=== PATIENT | female | born 1945 | race Caucasian/White ===

== ENCOUNTER 2019-02-27 02:16 | Outpatient (CLI) | payer OTHER, SELFPAY ==
--- NOTE | 2019-02-27 | PFT_ITS ---
PULMONARY FUNCTION TEST REPORT Patient - Luh Vargas DATE OF SERVICE February 27, 2019 REQUESTING PROVIDER Digna Montoya M.D. INTERPRETATION OF STUDY Spirometry shows mild obstructive airways disease with no bronchodilator response. IMPRESSION Mild obstructive airways disease with no significant bronchodilator response. Clinical correlation recommended. Penny Mullins M.D. JOYCE/ T- 03/06/2019 Methacholine challenge testing Good patient effort after baseline spirometry showing mild obstructive airways disease. Methacholine challenge testing was carried out up to a methacholine concentration of 0.5 mg/ml, at which point the patient had a 27% drop in FEV1. IMPRESSION Strongly positive Methacholine challenge test. Clinical correlation recommended. Penny Mullins M.D. Corrina T 03/06/2019
[2019-02-27] MEDS: Methacholine 100 MG VIAL IH (11:45)
[2019-02-27] MEDS: Albuterol HFA 18 GM 200 PUFF INH IH (11:46)
[2019-02-27] MEDS: Inhaler, Assist Device 1 EACH MC (11:46)
== END 2019-02-27 02:36 ==
PROVIDERS: PCP Nurse Practitioner Adult Health; Visit Provider Internal Medicine Pulmonary Disease
DX: R05 Cough (principal); J45.991 Cough variant asthma
CPT/HCPCS: 94060; 95070; J7674